=== PATIENT | female | born 1935 | race Caucasian/White ===

== ENCOUNTER 2020-09-08 12:32 | Emergency (ER) | payer MEDICARE, OTHER ==
--- NOTE | 2020-09-08 13:10 | CT ---
CT BRAIN NONCONTRAST: DATE: 09/08/2020 HISTORY: 85-year-old female status post acute head trauma from fall FINDINGS: There is no evidence of acute intra-axial or extra-axial hemorrhage. There is no midline shift or any other mass effect. There is no extra-axial fluid collection. There is no evidence of obstructive hydrocephalus. Calvarium is intact. There is a large right supraorbital superficial soft tissue hemat bairon. IMPRESSION: 1. No acute intracranial findings. 2. Acute, traumatic, large right supraorbital superficial soft tissue hematoma
--- NOTE | 2020-09-08 13:15 | CT ---
EXAM: CT cervical spine PROVIDED CLINICAL HISTORY: Hematoma to right forehead after fall in parking lot. Injury after fall. Patient hit head. TECHNIQUE: Contiguous axial CT images are obtained through the cervical spine from the skull base to the T1-2 le lazara. Sagittal and coronal reformatted images are provided. COMPARISON: None FINDINGS: Multilevel degenerative changes are present with multilevel osteophytes, narrowing of the interverteb ral disc spaces and endplate degenerative changes present. There is mild anterolisthesis of C2 on C3 and C7 on T1 likely related to degenerative change. Moderate to severe bilateral neural foraminal narrowing is present at C4-5 level due to disc osteophyte complex and uncinate process hypertrophy. Vertebral body heights are within normal limits. No fracture or traumatic subluxation is seen. No prevertebral soft tissue swelling apparent. Minimal symmetric biapical pleural parenchymal scarring. No pneumothorax is seen in the limited visua lized lung apices Visualized thyroid gland demonstrates a grossly normal nonenhanced CT appearance. IMPRESSION: 1. Multilevel degenerative changes of cervical spine without fracture or traumatic subluxation. 2. Mild anterolisthesis of C2 on C3 and C7 on T1 likely due to degenerative changes.
== END 2020-09-08 13:45 | disposition home or self-care (01) ==
LOC: ERS 12:32
DX: S13.4XXA Sprain of ligaments of cervical spine, initial encounter (principal); S00.83XA Contusion of other part of head, initial encounter; R73.03 Prediabetes; I10 Essential (primary) hypertension; E78.6 Lipoprotein deficiency; W17.2XXA Fall into hole, initial encounter; Z79.899 Other long term (current) drug therapy
CPT/HCPCS: 70450; 72125